=== PATIENT | female | born 1985 | race African-American/Black ===

== ENCOUNTER 2025-03-20 09:25 | Emergency (ER) | payer MEDICAID ==
[2025-03-20] MEDS: Lidocaine 2% Viscous Solution 15 ML UD PO ONE (09:59)
[2025-03-20] MEDS: Benzocaine 20% Topical Spray UD MUCMEM ONE (09:59)
[2025-03-20] MEDS: Ketorolac 30 MG/ML SDV IM ONE (10:00)
== END 2025-03-20 10:30 | disposition home or self-care (01) ==
LOC: MW.ED 09:25
DX: K04.7 Periapical abscess without sinus (principal); J45.909 Unspecified asthma, uncomplicated; H66.93 Otitis media, unspecified, bilateral; Z88.0 Allergy status to penicillin; Z91.040 Latex allergy status; Z91.048 Other nonmedicinal substance allergy status; Z79.899 Other long term (current) drug therapy
CPT/HCPCS: 96372; 99282; A9270; J1885; J3490; 99283